=== PATIENT | male | born 1985 | race Caucasian/White ===

== ENCOUNTER 2017-05-15 20:26 | Emergency (ER) | payer OTHER ==
[2017-05-15] MEDS ORDERED: Ondansetron HCl/PF 4 MG/2 ML Vial ONE (20:52)
[2017-05-15] MEDS ORDERED: Morphine 4 MG/ML Carpuject ONE (20:52)
[2017-05-15] MEDS ORDERED: predniSONE 20 MG TAB ONE (22:16)
[2017-05-15] MEDS ORDERED: HYDROcodone/Acetaminophen 5/325 mg Tablet ONE (22:46)
== END 2017-05-15 22:53 | disposition home or self-care (01) ==
LOC: SCSER 20:26
DX: M54.32 Sciatica, left side (principal); R11.2 Nausea with vomiting, unspecified; E78.5 Hyperlipidemia, unspecified; I10 Essential (primary) hypertension; Z79.899 Other long term (current) drug therapy
CPT/HCPCS: 96374; 96375; J2270; J2405; J7506

== ENCOUNTER 2017-05-19 12:38 | Outpatient (CLI) | payer OTHER ==
--- NOTE | 2017-05-19 16:40 | MRI ---
MRI OF LUMBAR SPINE WITHOUT CONTRAST 05/19/17 INDICATION: Low back pain with pain down the left leg. FINDINGS: At L5-S1, there is a broad based disc bulge with a superimposed left paracentral protrusion causing m oderate to severe narrowing of the left lateral recess with displacement of the traversing left S1 ne rve root posteriorly on image 57 of series 6. The broad based disc bulge and facet hypertrophy does c ause moderate narrowing of the right subarticular lateral recess without definite impingement of the traversing right S1 nerve root. No neural foraminal narrowing is evident. At L4-5, there is a broad based bulge with facet joint degenerative change inducing mild central jack l narrowing without appreciable neural foraminal narrowing. At L3-4, there is no appreciable central canal or neural foraminal narrowing. At L2-3, there is no appreciable central canal or neural foraminal narrowing. At L1-2, there is no appreciable central canal or neural foraminal narrowing. At T12-L1, there is no appreciable central canal or neural foraminal narrowing. IMPRESSION: 1. Broad based bulge with superimposed left paracentral protrusion at L5-S1 causing severe narro wing of the left subarticular left lateral recess with displacement of the left S1 nerve root posteri patrick. There is also moderate right subarticular lateral recess narrowing without definite impingement of the right S1 nerve root. 2. Mild central canal narrowing at L4-5 due to a broad based bulge. POS: [facility]
== END 2017-05-19 12:39 | disposition home or self-care (01) ==
LOC: TBSIIMAG 12:38
PROVIDERS: ATTEND Neurological Surgery
DX: M54.16 Radiculopathy, lumbar region (principal)
CPT/HCPCS: 72148

== ENCOUNTER 2017-06-02 16:02 | Outpatient (CLI) | payer OTHER ==
[2017-06-02 17:44] LABS: #Basophils 0.1 thou/uL (0.0-0.2); #Eosinphils 0.1 thou/uL (0.0-0.7); #Lymphocytes 3.6 thou/uL (1.20-3.40); #Monocytes 0.5 thou/uL (0.11-0.59); #Neutrophils 4.3 thou/uL (1.40-6.50); %Basophils 1.1 % (0.0-1.0); %Eosinophils 1.4 % (0.0-10.0); %Lymphocytes 41.9 % (21.0-51.0); %Monocytes 5.7 % (0.0-10.0); %Neutrophils 49.9 % (42.0-75.0); Hemoglobin 14.3 g/dL (14.0-18.0); Mean Corpuscular HGB CONC 33.7 g/dL (32.0-36.0); Mean Corpuscular Hemoglobin 31.1 pg (27.0-31.0); Mean Corpuscular Volume 92.2 fl (80.0-94.0); Mean Platelet Volume 7.5 fL (7.4-10.4); Platelet Count 355 thou/uL (130-400); RBC Distribution Width 11.5 % (11.5-14.5); Red Blood Cell (RBC) Count 4.61 mill/uL (4.70-6.10); White Blood Cell (WBC) Count 8.7 thou/uL (4.8-10.8)
[2017-06-02 18:08] LABS: Anion Gap 15 mmol/L (10-20); BUN (Urea Nitrogen) 15 mg/dL (8.9-20.6); Calc. Creatinine Clearance 0 mL/min (70-130); Calcium 10.6 mg/dL (7.8-10.44); Carbon Dioxide 25 mmol/L (22-29); Chloride 102 mmol/L (98-107); Estimated GFR-MDRD Greater than 90; Glucose 113 mg/dL (70-105); Potassium 3.8 mmol/L (3.5-5.1); Sodium 138 mmol/L (136-145)
--- NOTE | 2017-06-10 19:33 | EKG ---
Test Reason : Blood Pressure : / mmHG Vent. Rate : 063 BPM Atrial Rate : 063 BPM P-R Int : 144 ms QRS Dur : 092 ms QT Int : 396 ms P-R-T Axes : 009 072 -08 degrees QTc Int : 405 ms Normal sinus rhythm Possible Inferior infarct , age undetermined Abnormal ECG No previous ECGs available Confirmed by DIANA AMBRIZ (2) on 06/10/2017 7:33:29 PM Referred By: [place] Confirmed By:DIANA AMBRIZ
== END 2017-06-02 16:03 | disposition home or self-care (01) ==
LOC: LABBT 16:02
PROVIDERS: ATTEND Neurological Surgery
DX: Z01.818 Encounter for other preprocedural examination (principal); M54.16 Radiculopathy, lumbar region
CPT/HCPCS: 80048; 85025; 93005; 93010

== ENCOUNTER 2017-06-07 07:18 | Day surgery (SDC) | payer OTHER ==
[2017-06-02 16:10] VITALS: BMI 34.9
[2017-06-07] MEDS ORDERED: CEFAZOLIN/Water 2 GM/20 ML SYRINGE ONE (07:52)
[2017-06-07] MEDS ORDERED: Midazolam HCl 2 mg/2 ml Vial ONE (09:41)
[2017-06-07] MEDS ORDERED: Fentanyl 100 MCG/2 ML VIAL ONE ×3 (09:41→11:54)
[2017-06-07] MEDS ORDERED: Promethazine HCl 25 MG/ML VIAL ONE (10:54)
--- NOTE | 2017-06-07 12:54 | OP ---
DATE OF PROCEDURE: 06/07/2017 SURGEON: Carlos Santos M.D. SHEET LAYER: Crow. PROCEDURE: Left L5-S1 microdiskectomy. PROCEDURE IN DETAIL: The patient was brought to the operating room and intubated. He was rolled in the prone position on gel-filled chest rolls. An incision made exposing left L5-S1 and our level was confirmed by x-ray. We performed complete left L5-S1 hemilaminectomy, removed the yellow ligament, identified the left S1 nerve root, and beneath it was a large bulging disk herniation. This was inci sed and debrided in multiple fragments and a complete decompression was secured. The wound was then extensively irrigated, immaculate hemostasis was secured. Vancomycin powder was applied and the woun d was then closed in anatomic layers.
[2017-06-07] MEDS ORDERED: HYDROcodone/Acetaminophen 5/325 mg Tablet ONE (13:19)
[2017-06-07] MEDS ORDERED: Ketorolac Tromethamine 30 MG/ML VIAL ONE (17:08)
[2017-06-07] MEDS ORDERED: PROPOFOL 200 MG/20 ML VIAL ONE (17:08)
[2017-06-07] MEDS ORDERED: Glycopyrrolate 0.2 MG/ML 5 ML SYRINGE ONE (17:08)
[2017-06-07] MEDS ORDERED: Lidocaine 1% PF 5 ML VIAL ONE (17:08)
[2017-06-07] MEDS ORDERED: Ondansetron HCl/PF 4 MG/2 ML Vial ONE (17:08)
[2017-06-07] MEDS ORDERED: Dexamethasone 20 MG/5 ML VIAL ONE (17:08)
== END 2017-06-07 13:40 | disposition home or self-care (01) ==
LOC: SDC 07:18
PROVIDERS: ATTEND Neurological Surgery
PROC: 0SB40ZZ Excision of Lumbosacral Disc, Open Approach (ICD-10-PCS; principal; 2017-06-07)
DX: M51.27 Other intervertebral disc displacement, lumbosacral region (principal); Z90.89 Acquired absence of other organs
CPT/HCPCS: 76001; J1100; J1885; J2001; J2250; J2405; J2550; J2704; J3010; J3370

== ENCOUNTER 2019-08-16 07:26 | Outpatient (CLI) | payer OTHER ==
[2019-08-16 08:10] LABS: Estimated GFR-MDRD - POC Greater than 90
--- NOTE | 2019-08-16 09:26 | MRI ---
EXAM: MRI lumbar spine without and with contrast HISTORY: Low back pain and left leg weakness. Prior lumbar surgery in 2018 COMPARISON: 05/19/2017 TECHNIQUE: Multiple planar multisequence MR images were obtained of the lumbar spine without and with contrast. FINDINGS: The vertebral bodies and intervertebral discs demonstrate normal height and alignment without fractur e or subluxation. The prevertebral and paraspinal soft tissues are unremarkable. No marrow signal abnormality is present. The conus medullaris terminates normally at T12/L1. No abnormal enhancement is seen on this examination. T12/L1: No significant posterior bulge or protrusion. No posterior facet arthrosis. No central jack l stenosis. No neural foraminal stenosis L1/2: No significant posterior bulge or protrusion. No posterior facet arthrosis. No central canal stenosis. No neural foraminal stenosis L2/3: No significant posterior bulge or protrusion. No posterior facet arthrosis. No central canal stenosis. No neural foraminal stenosis L3/4: No significant posterior bulge or protrusion. Mild bilateral posterior facet arthrosis. No ce ntral canal stenosis. No neural foraminal stenosis L4/5: Small central protrusion is associated with high T2 signal which may represent an annular tear. Mild bilateral posterior facet arthrosis. Mild central canal stenosis. No neural foraminal stenosis L5/S1: Small disc osteophyte complex. No posterior facet arthrosis. Mild central canal stenosis. M oderate left and mild right neural foraminal stenosis IMPRESSION: Degenerative changes of the lumbar spine as above.
[2019-08-16] MEDS ORDERED: Magnevist 469MG/ML 20 ML VIAL ONE (15:00)
== END 2019-08-16 07:27 | disposition home or self-care (01) ==
LOC: BICMRI 07:26
PROVIDERS: ATTEND Neurological Surgery
DX: M47.26 Other spondylosis with radiculopathy, lumbar region (principal)
CPT/HCPCS: 72158; 82565; A9579

== ENCOUNTER 2019-09-27 07:11 | Outpatient (CLI) | payer OTHER ==
[2019-09-27 14:43] LABS: Hemoglobin 13.7 g/dL (14.0-18.0); Mean Corpuscular HGB CONC 33.8 g/dL (32.0-36.0); Mean Corpuscular Hemoglobin 30.6 pg (27.0-31.0); Mean Corpuscular Volume 90.7 fL (78.0-98.0); Mean Platelet Volume 7.7 fL (7.4-10.4); Platelet Count 316 thou/uL (130-400); RBC Distribution Width 11.2 % (11.5-14.5); Red Blood Cell (RBC) Count 4.48 mill/uL (4.70-6.10); White Blood Cell (WBC) Count 7.3 thou/uL (4.8-10.8)
[2019-09-27 15:05] LABS: Anion Gap 12 mmol/L (10-20); BUN (Urea Nitrogen) 14 mg/dL (8.9-20.6); Calc. Creatinine Clearance 0 mL/min (70-130); Calcium 9.7 mg/dL (7.8-10.44); Carbon Dioxide 25 mmol/L (22-29); Chloride 104 mmol/L (98-107); Estimated GFR-MDRD Greater than 90; Glucose 126 mg/dL (70-105); Potassium 3.6 mmol/L (3.5-5.1); Sodium 137 mmol/L (136-145)
--- NOTE | 2019-09-29 06:02 | EKG ---
Test Reason : PREOP Blood Pressure : / mmHG Vent. Rate : 072 BPM Atrial Rate : 072 BPM P-R Int : 156 ms QRS Dur : 094 ms QT Int : 380 ms P-R-T Axes : 038 036 017 degrees QTc Int : 416 ms Normal sinus rhythm with sinus arrhythmia Normal ECG Confirmed by DR. Kelli BLANDON ([id number]) on 09/29/2019 6:02:05 AM Referred By: [place] Confirmed By:DR. Kelli BLANDON
== END 2019-09-27 07:12 | disposition home or self-care (01) ==
LOC: LABBT 07:11
PROVIDERS: ATTEND Neurological Surgery
DX: Z01.818 Encounter for other preprocedural examination (principal); M43.16 Spondylolisthesis, lumbar region
CPT/HCPCS: 80048; 85027; 93005; 93010

== ENCOUNTER 2019-09-29 12:58 | Outpatient (CLI) | payer OTHER ==
[2019-09-29 18:26] LABS: SARS-CoV-2 MS2 Positive; SARS-CoV-2 N Gene Negative; SARS-CoV-2 S Gene Negative; SARS-CoV-2 orf1ab Negative
== END 2019-09-29 12:59 | disposition home or self-care (01) ==
LOC: LABBT 12:58
PROVIDERS: ATTEND Neurological Surgery
DX: Z01.812 Encounter for preprocedural laboratory examination (principal); Z11.59 Encounter for screening for other viral diseases; M43.16 Spondylolisthesis, lumbar region
CPT/HCPCS: 87635; U0003

== ENCOUNTER 2019-10-02 05:58 | Day surgery (SDC) | payer OTHER ==
[2019-09-27 14:03] VITALS: BMI 33.4
[2019-10-02] MEDS ORDERED: Midazolam HCl 2 mg/2 ml Vial ONE ×2 (06:54→07:10)
[2019-10-02] MEDS ORDERED: Fentanyl 100 MCG/2 ML VIAL ONE ×4 (06:54→09:50)
--- NOTE | 2019-10-02 08:58 | OP ---
DATE OF PROCEDURE: 10/02/2019 [employer] MACHINE OPERATOR: Melody Ansari PA-C PROCEDURE PERFORMED: Left L5-S1 laminectomy, facetectomy, foraminotomy and diskectomy, interbody arthrodesis, intervertebral biomechanical device, local morselized autograft, demineralized bone matrix, posterolateral arthrodesis, pedicle screw instrumentation L5-S1. DESCRIPTION OF PROCEDURE: The patient was brought to the operating room and intubated. He was rolled in a prone position on gel-filled chest rolls. The previous incision was reopened and extended. The surgery was difficult given his large body habitus. We exposed the L5-S1 level bilaterally in the prior scar tissue. We performed a complete left L5-S1 facetectomy, foraminotomy, and identified the left distal S1 nerve root and removed scar and disk material from beneath it as well as from beneath left L5. Next, the disk was incised and debrided. The bony endplates were decorticated for the purpose of arthrodesis. An appropriate-sized intervertebral biomechanical PEEK device was brought in the field. It was filled with demineralized bone matrix local morselized autograft, and tapped in place securely at L5-S1. Next, pedicle screws were placed at left L5 and left S1 using lateral fluoroscopic guidance and the position was confirmed by x-ray. The trever was then secured between the screws, connected by nuts, which were final tightened. The wound was then extensively irrigated. MAC hemostasis was secured. A combination of demineralized bone matrix and local morselized autograft was laid over the lamina on the posterolateral surfaces for the purpose of arthrodesis. Vancomycin powder was applied and the wound was then closed in anatomic layers. Job ID: [id number]
[2019-10-02] MEDS ORDERED: Dexamethasone 20 MG/5 ML VIAL ONE (09:52)
[2019-10-02] MEDS ORDERED: Ondansetron PF 4 MG/2 ML Vial ONE ×2 (09:52→12:20)
[2019-10-02] MEDS ORDERED: PROPOFOL 200 MG/20 ML VIAL ONE (09:52)
[2019-10-02] MEDS ORDERED: Glycopyrrolate 0.2 MG/ML 5 ML SYRINGE ONE (09:52)
[2019-10-02] MEDS ORDERED: Lidocaine 1% PF 5 ML VIAL ONE (09:52)
[2019-10-02] MEDS ORDERED: Rocuronium Bromide 10 MG/ML (10ML VIAL) ONE (09:52)
[2019-10-02] MEDS ORDERED: HYDROmorphone 2 MG/ML VIAL ONE (10:06)
[2019-10-02] MEDS ORDERED: HYDROcodone/Acetaminophen 5/325 mg Tablet ONE (11:47)
[2019-10-02] MEDS ORDERED: Cyclobenzaprine 10 MG TAB ONE (14:40)
[2019-10-02] MEDS ORDERED: Tamsulosin HCl 0.4 MG CAP ONE (14:57)
== END 2019-10-02 16:50 | disposition home or self-care (01) ==
LOC: SDC 05:58
PROVIDERS: ATTEND Neurological Surgery
PROC: 0SG00AJ Fusion of Lumbar Vertebral Joint with Interbody Fusion Device, Posterior Approach, Anterior Column, Open Approach (ICD-10-PCS; principal; 2019-10-02)
PROC: 0SG0071 Fusion of Lumbar Vertebral Joint with Autologous Tissue Substitute, Posterior Approach, Posterior Column, Open Approach (ICD-10-PCS; principal; 2019-10-02)
PROC: 0ST20ZZ Resection of Lumbar Vertebral Disc, Open Approach (ICD-10-PCS; principal; 2019-10-02)
DX: M43.16 Spondylolisthesis, lumbar region (principal)
CPT/HCPCS: 51798; 76000; C1768; J0690; J1100; J1170; J2001; J2250; J2405; J2704; J3010; J3370

== ENCOUNTER 2019-10-16 14:45 | Outpatient (CLI) | payer OTHER ==
--- NOTE | 2019-10-16 15:09 | RAD ---
LUMBAR SPINE 3 VIEWS: HISTORY: Spondylolisthesis. Low back pain. Followup surgery. FINDINGS: Comparison is made to lumbar films of 03/18/2016. Pedicle screws are seen on the left at L5-S1. There is an interbody implant at this level which is l ocated to the left of midline in the AP projection. The lumbar vertebrae maintain normal height and alignment. The other disk spaces are maintained. Mi nimal spurring. Moderate facet hypertrophy. IMPRESSION: Postoperative and degenerative changes of the lumbar spine noted. POS: [facility]
== END 2019-10-16 14:46 | disposition home or self-care (01) ==
LOC: TBSIIMAG 14:45
PROVIDERS: ATTEND Neurological Surgery
DX: M43.16 Spondylolisthesis, lumbar region (principal); M47.816 Spondylosis without myelopathy or radiculopathy, lumbar region; Z98.890 Other specified postprocedural states
CPT/HCPCS: 72100

== ENCOUNTER 2019-12-20 13:29 | Outpatient (CLI) | payer OTHER ==
--- NOTE | 2019-12-20 14:14 | RAD ---
LUMBAR SPINE: 12/20/19 Two views. HISTORY: Spondylolisthesis. COMPARISON: 10/16/19. Pedicle screws on the left at L5-S1 again noted with interbody implant. Vertebral bodies maintain nor mal height and alignment. Posterior alignment is preserved. No evidence of listhesis. No interval ch jenaro from 10/16/19. IMPRESSION: Stable findings.
== END 2019-12-20 13:30 | disposition home or self-care (01) ==
LOC: TBSIIMAG 13:29
PROVIDERS: ATTEND Neurological Surgery
DX: M43.16 Spondylolisthesis, lumbar region (principal)
CPT/HCPCS: 72100

== ENCOUNTER 2020-03-21 14:33 | Outpatient (CLI) | payer OTHER ==
--- NOTE | 2020-03-21 14:51 | RAD ---
EXAM: XR Lumbar Spine 2 Or 3 View PROVIDED CLINICAL HISTORY: Post back surgery 6 months ago. Follow-up evaluation. COMPARISON: 12/20/2019 FINDINGS: Again noted are postoperative changes related to posterior fusion at the L5-S1 level with unilateral left-sided pedicular screws and interlocking rods as well as intradiscal prosthesis. No hardware complication is seen. Vertebral body heights are within normal limits. Minimal narrowing of the L4-5 intervertebral disc space is present. No fracture or subluxation is seen. IMPRESSION: Stable postoperative changes lumbosacral junction.
== END 2020-03-21 14:34 | disposition home or self-care (01) ==
LOC: TBSIIMAG 14:33
PROVIDERS: ATTEND Neurological Surgery
DX: M54.16 Radiculopathy, lumbar region (principal); Z98.1 Arthrodesis status
CPT/HCPCS: 72100

== ENCOUNTER 2020-04-12 09:44 | Outpatient (CLI) | payer OTHER ==
--- NOTE | 2020-04-12 10:23 | RAD ---
LEFT HIP 2 VIEWS: Date: 04/12/2020 HISTORY: Left hip pain. FINDINGS: Joint space is fairly well preserved. No fracture or other findings. IMPRESSION: Unremarkable left hip. POS: [facility]
--- NOTE | 2020-04-12 10:44 | MRI ---
MRI Lower Ext Jt Lt WO Con History: Hip pain Comparison: Hip radiograph same day Findings: Since: Posterior left unilateral spinal fusion hardware at L5/S1. No marrow infiltrative pr ocess. No acute fracture or malalignment. Mild increased fluid signal within the pubic symphysis with low-grade degeneration of the disc. There is abnormal edema within the right pubic body with small erosion. This is best seen on the large field of view T2 sequence. Mild bilateral adductor longus undersurface partial tearing. Further injur y of the rectus abdominis-aponeurotic plate is a possibility, although this exam is performed as a left hip MRI and not sports hernia MRI. Labrum: Chondral labral junction tearing anterior superior labrum with small adjacent osteophyte. Rem ainder of the labrum is intact. Cartilage: Maintained. No significant defect. Muscles: No muscle atrophy. Intrapelvic soft tissues: Normal Impression: 1. Left chondral labral junction acetabular labral tear. 2. Although incompletely evaluated on this exam, findings of mild pubic symphysitis and athletic puba lgia including active erosion of the right pubic body, edema within the pubic symphysis, and low-grade undersurface partial tearing of both abductor longus tendons near the rectus abdominis-abdu ctor aponeurotic plate.
== END 2020-04-12 09:45 | disposition home or self-care (01) ==
LOC: TBSIIMAG 09:44
PROVIDERS: ATTEND Neurological Surgery
DX: M25.552 Pain in left hip (principal); S73.102D Unspecified sprain of left hip, subsequent encounter; R60.0 Localized edema

== ENCOUNTER 2021-12-02 19:30 | Outpatient (CLI) | payer BC | END 2021-12-02 19:31 | disposition home or self-care (01) | LOC: SLEEPLAB 19:30 | PROVIDERS: ATTEND Internal Medicine | DX: G47.33 Obstructive sleep apnea (adult) (pediatric) (principal); R53.83 Other fatigue; R06.83 Snoring; I10 Essential (primary) hypertension; G47.00 Insomnia, unspecified; G47.10 Hypersomnia, unspecified; M25.559 Pain in unspecified hip; M54.9 Dorsalgia, unspecified; G89.29 Other chronic pain | CPT/HCPCS: 95810 ==

== ENCOUNTER 2022-01-28 17:00 | Outpatient (CLI) | payer BC | END 2022-01-28 17:01 | disposition home or self-care (01) | LOC: SLEEPLAB 17:00 | PROVIDERS: ATTEND Internal Medicine | DX: G47.33 Obstructive sleep apnea (adult) (pediatric) (principal); R53.83 Other fatigue; R06.83 Snoring; I10 Essential (primary) hypertension; G47.10 Hypersomnia, unspecified; E66.9 Obesity, unspecified; Z68.42 Body mass index [BMI] 45.0-49.9, adult | CPT/HCPCS: 95811 ==